=== PATIENT | female | born 1985 | race Caucasian/White ===

== ENCOUNTER 2018-12-18 08:22 | Emergency (ER) | payer OTHER ==
[~2018-12-18] VITALS: Ht 157.5 cm; Wt 92.5 kg
[2018-12-18 08:30] VITALS: Ht 157.5 cm; Wt 92.5 kg
[2018-12-18 12:20] VITALS: BP 90/59
== END 2018-12-18 12:20 | disposition home or self-care (01) ==
LOC: ED 08:22
DX: N60.12 Diffuse cystic mastopathy of left breast (principal)
CPT/HCPCS: 76641; Q0092